=== PATIENT | male | born 1965 | race Two or more races ===

== ENCOUNTER 2018-03-20 11:56 | Inpatient (IN) | payer SELFPAY ==
[2018-03-20] MEDS ORDERED: Albuterol-Ipratrop 3 mg / 0.5 (3 ml) UD INH STA (13:21)
[2018-03-20 14:01] LABS: BASO % 1.1 % (0.0-2.0); EOS # 0.1 K/uL (0.0-0.7); EOS % 1.9 % (0.0-4.0); HEMOGLOBIN 10.2 g/dL (12.0-18.0); LYMPH # 0.6 K/uL (1.0-4.3); LYMPH % 21.1 % (20.0-40.0); MEAN CELL VOLUME 74.9 fL (80.0-94.0); MEAN CORPUSCULAR HEMOGLOBIN 24.9 pg (27.0-31.0); MEAN CORPUSCULAR HGB CONC 33.3 g/dL (33.0-37.0); MEAN PLATELET VOLUME 9.4 fL (7.2-11.7); MONO # 0.3 K/uL (0.0-0.8); MONO % 9.9 % (0.0-10.0); NEUT # 1.9 K/uL (1.8-7.0); RBC 4.11 Mil/uL (4.40-5.90); RED CELL DISTRIBUTION WIDTH 16.2 % (11.5-14.5); WHITE BLOOD COUNT 2.9 K/uL (4.8-10.8)
[2018-03-20] MEDS ORDERED: Albuterol-Ipratrop 3 mg / 0.5 (3 ml) UD ONE (14:18)
--- NOTE | 2018-03-20 14:20 | C.PDOC ---
History Of Present Illness 52 year old male, with PMHx of hepatitis, cirrhosis, presents to ED for evaluation of dry non-productive cough. Pt was seen on 03/05 and was found to have right middle lobe pneumonia. Pt was given Zithromax for 6 days. Notes fever has stopped, but dry cough persists. Also complains of snoring at night and symptoms of sleep apnea corroborated by @ bedside. No chest pain, shortness of breath, or other complaints. Time Seen by Provider: 03/20/18 13:09 Chief Complaint (Nursing): Cough, Cold, Congestion History Per: Patient History/Exam Limitations: no limitations Past Medical History Reviewed: Historical Data, Nursing Documentation, Vital Signs Vital Signs: Last Vital Signs Temp 98.8 F 03/20/18 12:16 Pulse 77 03/20/18 12:16 Resp 19 03/20/18 12:16 BP 188/78 H 03/20/18 12:16 Pulse Ox 96 03/20/18 12:16 - Medical History PMH: Gall Bladder Disease Denies: Chronic Kidney Disease Surgical History: Denies: Appendectomy, CABG, Carotid Endarterectomy, Cholecystectomy, Coronary Stent, Tonsillectomy Family History: States: Unknown Family Hx - Social History Hx Tobacco Use: No Hx Alcohol Use: No Hx Substance Use: No - Immunization History Hx Tetanus Toxoid Vaccination: No Hx Influenza Vaccination: No Hx Pneumococcal Vaccination: No Review Of Systems Except As Marked, All Systems Reviewed And Found Negative. Constitutional: Positive for: Other (symmetrical leg edema started about 2 yrs ago and persists daily. Not significantly improved in AM after sleeping.). Negative for: Fever, Chills Cardiovascular: Negative for: Chest Pain Respiratory: Positive for: Cough. Negative for: Shortness of Breath Gastrointestinal: Negative for: Nausea, Vomiting, Abdominal Pain Neurological: Negative for: Headache, Dizziness Physical Exam - Physical Exam Appears: Non-toxic, No Acute Distress, Other (morbidly obese) Skin: Normal Color, Warm, Dry Head: Atraumatic, Normacephalic Eye(s): bilateral: Normal Inspection Oral Mucosa: Moist Neck: Normal ROM, Supple Chest: Symmetrical Cardiovascular: Murmur (S3), JVD Respiratory: Normal Breath Sounds, No Rales, No Rhonchi, No Wheezing Gastrointestinal/Abdominal: Soft, No Tenderness, Distention, Other (globus abdomen) Back: No CVA Tenderness Extremity: Normal ROM, Pedal Edema (4/4 bilateral) Neurological/Psych: Oriented x3, Normal Speech ED Course And Treatment - Laboratory Results Result Diagrams: 03/21/18 07:20 03/21/18 02:38 Lab Interpretation: Abnormal (microcytic anemia, + d-dimer 620H, bnp/trop neg.) ECG: Interpreted By Me ECG Rhythm: Sinus Rhythm ECG Interpretation: Abnormal (LVH) Rate From EC O2 Sat by Pulse Oximetry: 96 Pulse Ox Interpretation: Normal - Radiology CXR: Interpreted by Me CXR Interpretation: Yes: Heart Size, Other (+CHF) Reevaluation Time: 15:58 Reassessment Condition: Improved - Physician Consult Information Outcome Of Conversation: 1630: d/w Dr. Spencer- Hospitalist covering self-pay pts, ok to tele adm Medical Decision Making Medical Decision Making: CHF: JVD, leg edema, RVH on CXR Cardiological or related to Hep C/Cirrhosis continue diuresis. COPD Lung dz/SOB continue LABA/long acting inhaled steroids as opt nebs as inpt D Dimer 620 H with suspected pulm HTN/R side failure prior allergic rxn to IV contrast so Dry Chest CT Lovenox 100 mg SQ given empirically consider VQ scan MANISH R heart faiure obese with clinical MANISH Sleep study for home BIPAP SARABJIT Cigarette Smoking Nicotine Patch started Continue quit smoking as opt. Hep C: large abd ? ascites consider inpt abd US increased risk of liver CA with hepatitis and cigarette smoking Microcytic Anemia, Hgb 10 Consider chronic GIB, iron def vs synthetic defect due to hepatitis Consider upper and lower endoscopies Consider Fe Supplements Costochondritis b/l parasternal chest wall discomfort related to dry non-prod cough x 1 month steroids for COPD will double cover Disposition Doctor Will See Patient In The: Hospital Counseled Patient/Family Regarding: Studies Performed, Diagnosis - Disposition Disposition: HOSPITALIZED Disposition Time: 16:36 Condition: GOOD - Clinical Impression Clinical Impression: CHF (congestive heart failure), COPD (chronic obstructive pulmonary disease) - Scribe Statement The provider has reviewed the documentation as recorded by the Scribe KP All medical record entries made by the Scribe were at my direction and personally dictated by me. I have reviewed the chart and agree that the record accurately reflects my personal performance of the history, physical exam, medical decision making, and the department course for this patient. I have also personally directed, reviewed, and agree with the discharge instructions and disposition.
[2018-03-20 14:26] LABS: INR 1.4; PROTHROMBIN TIME 14.8 SECONDS (9.7-12.2)
[2018-03-20 14:52] LABS: ALT/SGPT 71 U/L (21-72); AST/SGOT 68 U/L (17-59); BLOOD UREA NITROGEN 11 mg/dL (9-20); GFR NON-AFRICAN AMERICAN > 60
--- NOTE | 2018-03-20 15:25 | RAD ---
Date of service: 03/20/2018 PROCEDURE: CHEST RADIOGRAPH, 1 VIEW HISTORY: SOB COMPARISON: 03/05/2018 FINDINGS: LUNGS: No consolidation PLEURA: No pneumothorax or pleural fluid seen. CARDIOVASCULAR: Cardiomegaly and pulmonary venous congestion-the latter increased since prior exam. OSSEOUS STRUCTURES: No significant abnormalities. VISUALIZED UPPER ABDOMEN: Normal. OTHER FINDINGS: Round metallic device projects over low right paratracheal location not seen as such on prior study. This was shown to be a ring on patient's necklace and is not reproduced on the 2nd image IMPRESSION: Cardiomegaly-similar. Pulmonary venous congestion increased since prior exam. No gross consolidation seen.
[2018-03-20] MEDS ORDERED: Iodixanol 320 MG/ML 100 ML BOTTLE IV ONE (15:49)
[2018-03-20] MEDS ORDERED: Enoxaparin 40 mg Syringe SC STA (15:55)
[2018-03-20 16:07] LABS: URINE BACTERIA RARE (<OCC); URINE BILIRUBIN NEGATIVE (NEGATIVE); URINE BLOOD NEGATIVE (NEGATIVE); URINE CLARITY Clear (Clear); URINE COLOR Straw (YELLOW); URINE GLUCOSE (UA) NORMAL (Normal); URINE LEUKOCYTE ESTERASE NEG Leu/uL (Negative); URINE PROTEIN NEGATIVE (NEGATIVE); URINE UROBILINOGEN NORMAL mg/dL (0.2-1.0)
[2018-03-20] MEDS ORDERED: Enoxaparin 100 mg Syringe ONE (16:23)
--- NOTE | 2018-03-20 16:50 | CT ---
Date of service: 03/20/18 CT chest without IV contrast Indication: sob, R side failure, COPD, elev d-dimer Technique: Contiguous axial images were obtained through the chest without intravenous contrast enhancement. Sagittal and coronal reconstructions were generated and reviewed. This CT exam was performed using 1 or more of the following dose reduction techniques: Automated exposure control, adjustment of the MAA and/or kV according to patient size, and/or use of iterative reconstruction technique. Radiation dose (DLP): 843.27 MGy-cm. Comparison: Chest x-ray performed 03/20/18 Findings: Visualized portions of the inferior thyroid gland appear unremarkable. The mediastinal and hilar vascular structures appear within normal limits. The heart appears within normal limits of size. Coronary artery calcifications. Ascending aortic aneurysm measuring approximately 4.6 cm in AP dimension No focal consolidation. No pleural effusion. No pneumothorax. No suspicious pulmonary nodules measuring greater than 5 mm. Small hiatal hernia. Limited visualization of the noncontrast upper abdomen: Partially imaged splenomegaly. Severe enlargement of the portal vein and branches. Recannulized umbilical vein. Probable splenic varices. Sub cm mesenteric lymph nodes. Bilateral gynecomastia. Degenerative changes. Impression: Ascending aortic aneurysm measuring approximately 4.6 cm in AP dimension Limited visualization of the noncontrast upper abdomen: Partially imaged splenomegaly. Severe enlargement of the portal vein and branches. Recannulized umbilical vein. Probable splenic varices. Sub cm mesenteric lymph nodes. No focal consolidation. No pleural effusion. No pneumothorax.
[2018-03-20] MEDS: Albuterol-Ipratrop 3 mg / 0.5 (3 ml) UD INH SCH (18:47)
[2018-03-20] MEDS ORDERED: Azithromycin 500 MG in Sodium Chloride 0.9% 250 ML IVPB SCH (19:00)
[2018-03-20 19:37] VITALS: BMI 36.1
[2018-03-20 22:12] LABS: CK-MB 0.67 ng/mL (0.0-3.38)
--- NOTE | 2018-03-20 22:19 | CP.PCM.HP ---
<Kaitlin Villafuerte P - Last Filed: 03/21/18 06:19> History of Present Illness - History of Present Illness History of Present Illness: PGY-1 H&P note for hospitalist service. 52 year old M with PMHx of Hepatitis C (untreated), liver cirrhosis, splenomegaly and hypertension presents to ED for dry cough and shortness of breath on exertion that began approximately 3 weeks ago. Patient was seen at [facility] ED on 02/24, diagnosed with pneumonia, and discharged with 6 days of azithromycin. Patient states he took the full course of antibiotics, however cough never improved. Patient also complains of intermittent chest pain on the left side that at times radiates to L arm and is associated with L arm weakness. Associated symptoms include subjective fever, chills, diaphoresis, generalized weakness, headache, and nausea. PMHx: Hepatitis C (untreated), Liver cirrhosis, splenomegaly, hypertension PSHx: Denies Meds: None Allergies: IV contrast-shortness of breath Family Hx: father- [place] at 54 yo. Mother- [place] at 66 yo. Social: Smoker: 1ppd for 45 years; former IV drug use (heroine, cocaine)-quit 10 years ago. Denies alcohol use. Lives with () and kids. Works as a musician. Proxy: SonBarbara [phone] Code Status: full code PMD: none Present on Admission - Present on Admission Any Indicators Present on Admission: No Review of Systems - Constitutional Constitutional: Chills, Fever, Headache, Weakness - Cardiovascular Cardiovascular: Chest Pain, Diaphoresis, Dyspnea on Exertion, Edema, Lighthe adedness. absent: Palpitations - Respiratory Respiratory: Cough, Dyspnea on Exertion, Pain with Coughing. absent: Hemoptysis, Wheezing - Gastrointestinal Gastrointestinal: Abdominal Pain, Nausea. absent: Constipation, Diarrhea, Hematemesis, Melena, Vomiting - Genitourinary Genitourinary: absent: Difficulty Urinating, Hematuria, Urinary Frequency - Neurological Neurological: Headaches. absent: Syncope, Tingling Past Patient History - Past Medical History & Family History Past Medical History?: Yes - Past Social History Smoking Status: Heavy Smoker > 10 Cigarettes Daily - CARDIAC Hx Cardiac Disorders: No - PULMONARY Hx Respiratory Disorders: No - NEUROLOGICAL Hx Neurological Disorder: No - HEENT Hx HEENT Problems: No - RENAL Hx Chronic Kidney Disease: No - ENDOCRINE/METABOLIC Hx Endocrine Disorders: No - HEMATOLOGICAL/ONCOLOGICAL Hx Blood Disorders: Yes Hx Hepatitis C: Yes - INTEGUMENTARY Hx Dermatological Problems: No - MUSCULOSKELETAL/RHEUMATOLOGICAL Hx Musculoskeletal Disorders: No Hx Falls: No - GASTROINTESTINAL Hx Gastrointestinal Disorders: Yes Hx Gall Bladder Disease: Yes - GENITOURINARY/GYNECOLOGICAL Hx Genitourinary Disorders: No - PSYCHIATRIC Hx Psychophysiologic Disorder: No Hx Substance Use: No (in the past) - SURGICAL HISTORY Hx Surgeries: No Hx Appendectomy: No Hx Carotid Endarterectomy: No Hx Cholecystectomy: No Hx Coronary Artery Bypass Graft: No Hx Coronary Stent: No Hx Tonsillectomy: No - ANESTHESIA Hx Anesthesia: No Meds Allergies/Adverse Reactions: Allergies Allergy/AdvReac Type Severity Reaction Status Date / Time No Known Allergies Allergy Verified 03/20/18 12:20 Physical Exam - Constitutional Appears: No Acute Distress - Head Exam Head Exam: ATRAUMATIC, NORMOCEPHALIC - Eye Exam Eye Exam: EOMI, PERRL - ENT Exam ENT Exam: Mucous Membranes Moist - Respiratory Exam Respiratory Exam: Decreased Breath Sounds. absent: Rales, Rhonchi, Wheezes - Cardiovascular Exam Cardiovascular Exam: REGULAR RHYTHM, JVD, +S1, +S2, Systolic Murmur - GI/Abdominal Exam GI & Abdominal Exam: Distended, Normal Bowel Sounds, Soft. absent: Tenderness - Extremities Exam Extremities exam: Positive for: full ROM, normal capillary refill, pedal edema (non-pitting), pedal pulses present. Negative for: normal inspection (chronic venous stasis changes bilateral lower extremities) - Neurological Exam Neurological exam: Alert, CN II-XII Intact, Normal Gait, Oriented x3 - Skin Skin Exam: Diaphoretic, Intact, Normal Color, Warm Results - Vital Signs Recent Vital Signs: Last Vital Signs Temp 98.1 F 03/20/18 19:37 Pulse 84 03/20/18 19:37 Resp 16 03/20/18 19:37 BP 175/90 H 03/20/18 19:37 Pulse Ox 93 L 03/20/18 19:37 - Labs Result Diagrams: 03/20/18 13:57 03/21/18 02:38 Labs: Laboratory Results - last 24 hr 03/20/18 03/20/18 03/20/18 13:57 13:57 13:57 WBC 2.9 L RBC 4.11 L Hgb 10.2 L Hct 30.8 L MCV 74.9 L MCH 24.9 L MCHC 33.3 RDW 16.2 H Plt Count 50 L MPV 9.4 Neut % (Auto) 66.0 Lymph % (Auto) 21.1 [place] % (Auto) 9.9 Eos % (Auto) 1.9 Baso % (Auto) 1.1 Neut # (Auto) 1.9 Lymph # (Auto) 0.6 L [place] # (Auto) 0.3 Eos # (Auto) 0.1 Baso # (Auto) 0.0 PT 14.8 H INR 1.4 APTT 34 D-Dimer, Quantitative 620 H Sodium 140 Potassium 4.1 Chloride 106 Carbon Dioxide 25 Anion Gap 14 BUN 11 Creatinine 0.5 L Est GFR ( Amer) > 60 Est GFR (Non-Af Amer) > 60 Random Glucose 117 H Calcium 9.0 Total Bilirubin 0.7 AST 68 H D ALT 71 Alkaline Phosphatase 80 Total Creatine Kinase CK-MB (Mass) Troponin I < 0.0120 NT-Pro-B Natriuret Pep 32.0 Total Protein 8.1 Albumin 4.0 Globulin 4.1 H Albumin/Globulin Ratio 1.0 Urine Color Urine Clarity Urine pH Ur Specific [place] Urine Protein Urine Glucose (UA) Urine Ketones Urine Blood Urine Nitrate Urine Bilirubin Urine Urobilinogen Ur Leukocyte Esterase Urine WBC (Auto) Urine Bacteria 03/20/18 03/20/18 16:00 21:37 WBC RBC Hgb Hct MCV MCH MCHC RDW Plt Count MPV Neut % (Auto) Lymph % (Auto) [place] % (Auto) Eos % (Auto) Baso % (Auto) Neut # (Auto) Lymph # (Auto) [place] # (Auto) Eos # (Auto) Baso # (Auto) PT INR APTT D-Dimer, Quantitative Sodium Potassium Chloride Carbon Dioxide Anion Gap BUN Creatinine Est GFR ( Amer) Est GFR (Non-Af Amer) Random Glucose Calcium Total Bilirubin AST ALT Alkaline Phosphatase Total Creatine Kinase 106 CK-MB (Mass) 0.67 Troponin I < 0.0120 NT-Pro-B Natriuret Pep Total Protein Albumin Globulin Albumin/Globulin Ratio Urine Color Straw Urine Clarity Clear Urine pH 6.0 Ur Specific [place] 1.009 Urine Protein Negative Urine Glucose (UA) Normal Urine Ketones Negative Urine Blood Negative Urine Nitrate Negative Urine Bilirubin Negative Urine Urobilinogen Normal Ur Leukocyte Esterase Neg Urine WBC (Auto) < 1 Urine Bacteria Rare Assessment & Plan - Assessment and Plan (Free Text) Plan: 52 year old M with PMHx of Hepatitis C (untreated), liver cirrhosis, and hypertension admitted for cough, shortness of breath and chest pain. Chest pain rule out ACS -EKG: NSR @ 75bpm, LVH, no acute ST changes -CXR: Cardiomegaly-similar. Pulmonary venous congestion increased since prior exam. No gross consolidation seen. -Chest CT without contrast: Ascending aortic aneurysm measuring approximately 4.6 cm in AP dimension. Limited visualization of the noncontrast upper abdomen: Partially imaged splenomegaly. Severe enlargement of the portal vein and branches. Recannulized umbilical vein. Probable splenic varices. Sub cm mes enteric lymph nodes. No focal consolidation. No pleural effusion. No pneumothorax. -Troponin neg x2 -Echo ordered -Lipid panel -TSH, free T4 -Hgb A1c Dyspnea, rule out COPD vs PE vs CHF vs infectious etiology -CXR: Cardiomegaly-similar. Pulmonary venous congestion increased since prior exam. No gross consolidation seen. -Chest CT without contrast: Ascending aortic aneurysm measuring approximately 4.6 cm in AP dimension. Limited visualization of the noncontrast upper abdomen: Partially imaged splenomegaly. Severe enlargement of the portal vein and branches. Recannulized umbilical vein. Probable splenic varices. Sub cm mesenteric lymph nodes. No focal consolidation. No pleural effusion. No pneumothorax. -Patient received 100mg lovenox in ED -follow up V/Q scan -Duonebs Q4H -Solumedrol 40mg Q8H -Lasix 20 Q12H -Azithromycin 500mg IV daily -Ceftriaxone 1gm IV Q12H -Blood cx HTN -Norvasc 10mg PO daily -Hydralazine 25mg PO TID Prophylaxis -Pepcid 40mg daily -Lovenox 40mg daily -Nicotine patch -Heart healthy diet - Date & Time Date: 03/20/18 Time: 18:00 <Ray Whiting - Last Filed: 03/21/18 07:43> Results - Vital Signs Recent Vital Signs: Last Vital Signs Temp 98.2 F 03/21/18 00:00 Pulse 96 H 03/21/18 00:00 Resp 20 03/21/18 00:00 BP 166/73 H 03/21/18 00:00 Pulse Ox 95 10/05/18 00:00 - Labs Result Diagrams: 03/20/18 13:57 03/21/18 02:38 Labs: Laboratory Results - last 24 hr 03/20/18 03/20/18 03/20/18 13:57 13:57 13:57 WBC 2.9 L RBC 4.11 L Hgb 10.2 L Hct 30.8 L MCV 74.9 L MCH 24.9 L MCHC 33.3 RDW 16.2 H Plt Count 50 L MPV 9.4 Neut % (Auto) 66.0 Lymph % (Auto) 21.1 [place] % (Auto) 9.9 Eos % (Auto) 1.9 Baso % (Auto) 1.1 Neut # (Auto) 1.9 Lymph # (Auto) 0.6 L [place] # (Auto) 0.3 Eos # (Auto) 0.1 Baso # (Auto) 0.0 PT 14.8 H INR 1.4 APTT 34 D-Dimer, Quantitative 620 H Sodium 140 Potassium 4.1 Chloride 106 Carbon Dioxide 25 Anion Gap 14 BUN 11 Creatinine 0.5 L Est GFR ( Amer) > 60 Est GFR (Non-Af Amer) > 60 Random Glucose 117 H Calcium 9.0 Phosphorus Magnesium Total Bilirubin 0.7 AST 68 H D ALT 71 Alkaline Phosphatase 80 Total Creatine Kinase CK-MB (Mass) Troponin I < 0.0120 NT-Pro-B Natriuret Pep 32.0 Total Protein 8.1 Albumin 4.0 Globulin 4.1 H Albumin/Globulin Ratio 1.0 Triglycerides Cholesterol LDL Cholesterol Direct HDL Cholesterol TSH 3rd Generation Urine Color Urine Clarity Urine pH Ur Specific [place] Urine Protein Urine Glucose (UA) Urine Ketones Urine Blood Urine Nitrate Urine Bilirubin Urine Urobilinogen Ur Leukocyte Esterase Urine WBC (Auto) Urine Bacteria 03/20/18 03/20/18 03/21/18 16:00 21:37 02:38 WBC RBC Hgb Hct MCV MCH MCHC RDW Plt Count MPV Neut % (Auto) Lymph % (Auto) [place] % (Auto) Eos % (Auto) Baso % (Auto) Neut # (Auto) Lymph # (Auto) [place] # (Auto) Eos # (Auto) Baso # (Auto) PT INR APTT D-Dimer, Quantitative Sodium 139 Potassium 4.2 Chloride 103 Carbon Dioxide 25 Anion Gap 16 BUN 16 Creatinine 0.6 L Est GFR ( Amer) > 60 Est GFR (Non-Af Amer) > 60 Random Glucose 312 H Calcium 8.5 L Phosphorus 2.3 L Magnesium 1.7 Total Bilirubin 0.7 AST 55 ALT 56 Alkaline Phosphatase 77 Total Creatine Kinase 106 84 CK-MB (Mass) 0.67 0.55 Troponin I < 0.0120 0.0130 NT-Pro-B Natriuret Pep Total Protein 7.8 Albumin 3.8 Globulin 4.0 H Albumin/Globulin Ratio 0.9 L Triglycerides 150 H Cholesterol 111 LDL Cholesterol Direct 48 HDL Cholesterol 34 TSH 3rd Generation 0.38 L Urine Color Straw Urine Clarity Clear Urine pH 6.0 Ur Specific [place] 1.009 Urine Protein Negative Urine Glucose (UA) Normal Urine Ketones Negative Urine Blood Negative Urine Nitrate Negative Urine Bilirubin Negative Urine Urobilinogen Normal Ur Leukocyte Esterase Neg Urine WBC (Auto) < 1 Urine Bacteria Rare Attending/Attestation - Attestation I have personally seen and examined this patient.: Yes I have fully participated in the care of the patient.: Yes I have reviewed all pertinent clinical information: Yes Notes (Text): 03/21/18 07:43 Medical attending: Patient was seen and examined by me, I reviewed the above note by medical assistant dermatology and agree with the above note The patient says that he doesn't want to stay very long, I explained to him that we would not be offended if he left early however it was probably in his best interest to get all the tests that we were considering. His risk factors include a history of drug abuse he says he has used IV drugs in the past both heroine and cocaine. Chest x-ray shows cardiomegaly, he short of breath. He was recently coming into the hospital concerns for pneumonia. We have started the patient on IV antibiotics, blood cultures were taken. The ER was considering ordering a CTA to assess for PE, however they were not able to after the patient went to the CAT scan and said that he had some sort of allergy to IV contrast. We ordered a VQ study for the following day. He is ready received Lovenox 100 mg subcutaneous 1 He is still a smoker as well. I explained a lot of the risk that the patient has if he leaves early, the patient says that he understands but that he may still leave early tomorrow afternoon time. I explained to him what a AMA was, he said he understood Thank you very much, Ray Whiting
[2018-03-21] MEDS: Albuterol-Ipratrop 3 mg / 0.5 (3 ml) UD INH SCH ×3 (00:23→07:28)
[2018-03-21 00:40] VITALS: RESP 20; TEMP 98.2
[2018-03-21 03:14] LABS: LDL CHOLESTEROL 48 mg/dL (0-129)
[2018-03-21 03:15] LABS: CK-MB 0.55 ng/mL (0.0-3.38)
[2018-03-21 04:03] LABS: ALB/GLOB RATIO 0.9 (1.0-2.1); ALBUMIN 3.8 g/dL (3.5-5.0); ALT/SGPT 56 U/L (21-72); AST/SGOT 55 U/L (17-59); BLOOD UREA NITROGEN 16 mg/dL (9-20); CALCIUM 8.5 mg/dl (8.6-10.4); GFR NON-AFRICAN AMERICAN > 60; HDL CHOLESTEROL 34 mg/dL (30-70)
[2018-03-21 07:47] LABS: EOS % 0.1 % (0.0-4.0); HEMOGLOBIN 9.9 g/dL (12.0-18.0); MONO # 0.1 K/uL (0.0-0.8); NEUT # 1.9 K/uL (1.8-7.0); WHITE BLOOD COUNT 2.3 K/uL (4.8-10.8)
[2018-03-21 07:59] LABS: BASO % 0.6 % (0.0-2.0); LYMPH # 0.3 K/uL (1.0-4.3); LYMPH % 11.2 % (20.0-40.0); MEAN CELL VOLUME 74.9 fL (80.0-94.0); MEAN CORPUSCULAR HGB CONC 33.4 g/dL (33.0-37.0); MEAN PLATELET VOLUME 10.3 fL (7.2-11.7); MONO % 3.5 % (0.0-10.0); NEUT % 84.6 % (50.0-75.0); NRBC % 0.1 % (0.0-2.0); RBC 3.96 Mil/uL (4.40-5.90); RED CELL DISTRIBUTION WIDTH 16.3 % (11.5-14.5)
[2018-03-21 09:27] VITALS: PULSE 68
[2018-03-21 09:44] VITALS: BP 158/64
[2018-03-21] MEDS ORDERED: Enoxaparin 40 mg Syringe SC SCH (10:00)
--- NOTE | 2018-03-21 10:30 | NM ---
Date of service: 03/21/2018 COMPARISON: March 20, 2018 single-view chest. March 20, 2018 CT thorax TECHNIQUE: 7.9 mCi technetium 99-m Xe-133 Gas. 4.2 mCI technetium 99-m MAA administered intravenously. FINDINGS: VENTILATION COMPONENT: Normal. PERFUSION COMPONENT: Heterogeneous distribution of radionuclide. No geographic, segmental, lobar abnormalities apparent on the present examination. IMPRESSION: Low probability ventilation perfusion scan for pulmonary embolism.
--- NOTE | 2018-03-21 21:29 | CP.PCM.DIS ---
<Bryson Camilo - Last Filed: 03/21/18 21:21> Provider - Provider Date of Admission: 03/20/18 16:33 Attending physician: Srinivasa Spencer MD Primary care physician: None Time Spent in preparation of Discharge (in minutes): 45 Diagnosis - Discharge Diagnosis (1) Cirrhosis Status: Acute (2) Ascites Status: Acute (3) Pneumonia Status: Acute Hospital Course - Lab Results Lab Results: Most Recent Lab Values WBC 2.3 K/uL (4.8-10.8) L 03/21/18 07:20 RBC 3.96 Mil/uL (4.40-5.90) L 03/21/18 07:20 Hgb 9.9 g/dL (12.0-18.0) L 03/21/18 07:20 Hct 29.7 % (35.0-51.0) L 03/21/18 07:20 MCV 74.9 fL (80.0-94.0) L 03/21/18 07:20 MCH 25.0 pg (27.0-31.0) L 03/21/18 07:20 MCHC 33.4 g/dL (33.0-37.0) 03/21/18 07:20 RDW 16.3 % (11.5-14.5) H 03/21/18 07:20 Plt Count 57 K/uL (130-400) L 03/21/18 07:20 MPV 10.3 fL (7.2-11.7) 03/21/18 07:20 Neut % (Auto) 84.6 % (50.0-75.0) H 03/21/18 07:20 Lymph % (Auto) 11.2 % (20.0-40.0) L 03/21/18 07:20 [place] % (Auto) 3.5 % (0.0-10.0) 03/21/18 07:20 Eos % (Auto) 0.1 % (0.0-4.0) 03/21/18 07:20 Baso % (Auto) 0.6 % (0.0-2.0) 03/21/18 07:20 Neut # (Auto) 1.9 K/uL (1.8-7.0) 03/21/18 07:20 Lymph # (Auto) 0.3 K/uL (1.0-4.3) L 03/21/18 07:20 [place] # (Auto) 0.1 K/uL (0.0-0.8) 03/21/18 07:20 Eos # (Auto) 0.0 K/uL (0.0-0.7) 03/21/18 07:20 Baso # (Auto) 0.0 K/uL (0.0-0.2) 03/21/18 07:20 PT 14.8 SECONDS (9.7-12.2) H 03/20/18 13:57 INR 1.4 03/20/18 13:57 APTT 34 SECONDS (21-34) 03/20/18 13:57 D-Dimer, Quantitative 620 ng/mlDDU (0-243) H 03/20/18 13:57 Sodium 139 mmol/L (132-148) 03/21/18 02:38 Potassium 4.2 mmol/L (3.6-5.2) 03/21/18 02:38 Chloride 103 mmol/L (98-107) 03/21/18 02:38 Carbon Dioxide 25 mmol/L (22-30) 03/21/18 02:38 Anion Gap 16 (10-20) 03/21/18 02:38 BUN 16 mg/dL (9-20) 03/21/18 02:38 Creatinine 0.6 mg/dL (0.8-1.5) L 03/21/18 02:38 Est GFR ( Amer) > 60 03/21/18 02:38 Est GFR (Non-Af Amer) > 60 03/21/18 02:38 Random Glucose 312 mg/dL (75-110) H 03/21/18 02:38 Hemoglobin A1c 6.2 % (4.2-6.5) 03/21/18 07:20 Calcium 8.5 mg/dl (8.6-10.4) L 03/21/18 02:38 Phosphorus 2.3 mg/dL (2.5-4.5) L 03/21/18 02:38 Magnesium 1.7 mg/dL (1.6-2.3) 03/21/18 02:38 Total Bilirubin 0.7 mg/dL (0.2-1.3) 10/05/18 02:38 AST 55 U/L (17-59) 03/21/18 02:38 ALT 56 U/L (21-72) 03/21/18 02:38 Alkaline Phosphatase 77 U/L (38-126) 03/21/18 02:38 Total Creatine Kinase 84 U/L (55-170) 03/21/18 02:38 CK-MB (Mass) 0.55 ng/mL (0.0-3.38) 03/21/18 02:38 Troponin I 0.0130 ng/mL (0.00-0.120) 03/21/18 02:38 NT-Pro-B Natriuret Pep 32.0 pg/mL (0-900) 03/20/18 13:57 Total Protein 7.8 g/dL (6.3-8.3) 03/21/18 02:38 Albumin 3.8 g/dL (3.5-5.0) 03/21/18 02:38 Globulin 4.0 gm/dL (2.2-3.9) H 03/21/18 02:38 Albumin/Globulin Ratio 0.9 (1.0-2.1) L 03/21/18 02:38 Triglycerides 150 mg/dL (0-149) H 03/21/18 02:38 Cholesterol 111 mg/dL (0-199) 03/21/18 02:38 LDL Cholesterol Direct 48 mg/dL (0-129) 03/21/18 02:38 HDL Cholesterol 34 mg/dL (30-70) 03/21/18 02:38 Free T4 0.79 ng/dL (0.78-2.19) 03/21/18 07:20 TSH 3rd Generation 0.38 mIU/L (0.46-4.68) L 03/21/18 02:38 Urine Color Straw (YELLOW) 03/20/18 16:00 Urine Clarity Clear (Clear) 03/20/18 16:00 Urine pH 6.0 (5.0-8.0) 03/20/18 16:00 Ur Specific Ina 1.009 (1.003-1.030) 03/20/18 16:00 Urine Protein Negative mg/dL (NEGATIVE) 03/20/18 16:00 Urine Glucose (UA) Normal mg/dL (Normal) 03/20/18 16:00 Urine Ketones Negative mg/dL (NEGATIVE) 03/20/18 16:00 Urine Blood Negative (NEGATIVE) 03/20/18 16:00 Urine Nitrate Negative (NEGATIVE) 03/20/18 16:00 Urine Bilirubin Negative (NEGATIVE) 03/20/18 16:00 Urine Urobilinogen Normal mg/dL (0.2-1.0) 03/20/18 16:00 Ur Leukocyte Esterase Neg Michael/uL (Negative) 03/20/18 16:00 Urine WBC (Auto) < 1 /hpf (0-5) 03/20/18 16:00 Urine Bacteria Rare (<OCC) 03/20/18 16:00 - Hospital Course Hospital Course: Medicine Discharge Summary for Hospitalist Service 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 Patient was seen at [facility] ED on 02/24/18, diagnosed with pneumonia, and discharged with 6 days of azithromycin. Patient stated he took the full course of antibiotics, however cough never improved. Patient also complained of intermittent chest pain on the left side that at times radiates to L arm and is associated with L arm weakness. Associated symptoms included subjective fever, chills, diaphoresis, generalized weakness, headache, and nausea. Pt was admitted for treatment of Pneumonia, management of Hepatitis C, and liver cirrhosis/ascites. EKG: NSR @ 75bpm, LVH, no acute ST changes CXR: Cardiomegaly-similar. Pulmonary venous congestion increased since prior exam. No gross consolidation seen. Chest CT without contrast: Ascending aortic aneurysm measuring approximately 4.6 cm in AP dimension. Limited visualization of the noncontrast upper abdomen: Partially imaged splenomegaly. Severe enlargement of the portal vein and branches. Recannulized umbilical vein. Probable splenic varices. Sub cm mesen teric lymph nodes. No focal consolidation. No pleural effusion. No pneumothorax. Echo was ordered on admission. Troponins were negative. Pt received lovenox and V/Q scan was ordered to r/o PE vs. CHF vs. infectious etiology for shortness of breath. Pt was placed on duonebs, solumedrol, lasix, azithromycin, ceftriaxone. Blood cultures were drawn. Pt was medically managed for HTN on home medication doses. This am on 03/21/18, pt decided to leave against medical advice and refused further work-up. Risks and benefits of leaving against medical advice were conveyed to the patient, who was understanding of his decision. Instructed patient to f/u at [facility], since pt reported having no PMD prior to admission. Physical exam deferred due to pt leaving against medical advice this am. Plan discussed with Dr. Whiting, attending. Discharge Exam - Head Exam Head Exam: ATRAUMATIC, NORMOCEPHALIC Discharge Plan - Follow Up Plan Condition: GOOD Disposition: AGAINST MEDICAL ADVICE <Ray Whiting H - Last Filed: 03/22/18 12:12> Provider - Provider Date of Admission: 03/20/18 16:33 Attending physician: Srinivasa Spencer MD Hospital Course - Lab Results Lab Results: Micro Results 03/20/18 22:40 Blood-Venous Blood Culture - Preliminary NO GROWTH AFTER 24 HOURS 03/20/18 21:37 Blood-Venous Blood Culture - Preliminary NO GROWTH AFTER 24 HOURS Most Recent Lab Values WBC 2.3 K/uL (4.8-10.8) L 03/21/18 07:20 RBC 3.96 Mil/uL (4.40-5.90) L 03/21/18 07:20 Hgb 9.9 g/dL (12.0-18.0) L 03/21/18 07:20 Hct 29.7 % (35.0-51.0) L 03/21/18 07:20 MCV 74.9 fL (80.0-94.0) L 03/21/18 07:20 MCH 25.0 pg (27.0-31.0) L 03/21/18 07:20 MCHC 33.4 g/dL (33.0-37.0) 03/21/18 07:20 RDW 16.3 % (11.5-14.5) H 03/21/18 07:20 Plt Count 57 K/uL (130-400) L 03/21/18 07:20 MPV 10.3 fL (7.2-11.7) 03/21/18 07:20 Neut % (Auto) 84.6 % (50.0-75.0) H 03/21/18 07:20 Lymph % (Auto) 11.2 % (20.0-40.0) L 03/21/18 07:20 [place] % (Auto) 3.5 % (0.0-10.0) 03/21/18 07:20 Eos % (Auto) 0.1 % (0.0-4.0) 03/21/18 07:20 Baso % (Auto) 0.6 % (0.0-2.0) 03/21/18 07:20 Neut # (Auto) 1.9 K/uL (1.8-7.0) 03/21/18 07:20 Lymph # (Auto) 0.3 K/uL (1.0-4.3) L 03/21/18 07:20 [place] # (Auto) 0.1 K/uL (0.0-0.8) 03/21/18 07:20 Eos # (Auto) 0.0 K/uL (0.0-0.7) 03/21/18 07:20 Baso # (Auto) 0.0 K/uL (0.0-0.2) 03/21/18 07:20 PT 14.8 SECONDS (9.7-12.2) H 03/20/18 13:57 INR 1.4 03/20/18 13:57 APTT 34 SECONDS (21-34) 03/20/18 13:57 D-Dimer, Quantitative 620 ng/mlDDU (0-243) H 03/20/18 13:57 Sodium 139 mmol/L (132-148) 03/21/18 02:38 Potassium 4.2 mmol/L (3.6-5.2) 03/21/18 02:38 Chloride 103 mmol/L (98-107) 03/21/18 02:38 Carbon Dioxide 25 mmol/L (22-30) 03/21/18 02:38 Anion Gap 16 (10-20) 03/21/18 02:38 BUN 16 mg/dL (9-20) 03/21/18 02:38 Creatinine 0.6 mg/dL (0.8-1.5) L 03/21/18 02:38 Est GFR ( Amer) > 60 03/21/18 02:38 Est GFR (Non-Af Amer) > 60 03/21/18 02:38 Random Glucose 312 mg/dL (75-110) H 03/21/18 02:38 Hemoglobin A1c 6.2 % (4.2-6.5) 03/21/18 07:20 Calcium 8.5 mg/dl (8.6-10.4) L 03/21/18 02:38 Phosphorus 2.3 mg/dL (2.5-4.5) L 03/21/18 02:38 Magnesium 1.7 mg/dL (1.6-2.3) 03/21/18 02:38 Total Bilirubin 0.7 mg/dL (0.2-1.3) 03/21/18 02:38 AST 55 U/L (17-59) 03/21/18 02:38 ALT 56 U/L (21-72) 03/21/18 02:38 Alkaline Phosphatase 77 U/L (38-126) 03/21/18 02:38 Total Creatine Kinase 84 U/L (55-170) 03/21/18 02:38 CK-MB (Mass) 0.55 ng/mL (0.0-3.38) 03/21/18 02:38 Troponin I 0.0130 ng/mL (0.00-0.120) 03/21/18 02:38 NT-Pro-B Natriuret Pep 32.0 pg/mL (0-900) 03/20/18 13:57 Total Protein 7.8 g/dL (6.3-8.3) 03/21/18 02:38 Albumin 3.8 g/dL (3.5-5.0) 03/21/18 02:38 Globulin 4.0 gm/dL (2.2-3.9) H 03/21/18 02:38 Albumin/Globulin Ratio 0.9 (1.0-2.1) L 03/21/18 02:38 Triglycerides 150 mg/dL (0-149) H 03/21/18 02:38 Cholesterol 111 mg/dL (0-199) 03/21/18 02:38 LDL Cholesterol Direct 48 mg/dL (0-129) 03/21/18 02:38 HDL Cholesterol 34 mg/dL (30-70) 03/21/18 02:38 Free T4 0.79 ng/dL (0.78-2.19) 03/21/18 07:20 TSH 3rd Generation 0.38 mIU/L (0.46-4.68) L 03/21/18 02:38 Urine Color Straw (YELLOW) 03/20/18 16:00 Urine Clarity Clear (Clear) 03/20/18 16:00 Urine pH 6.0 (5.0-8.0) 03/20/18 16:00 Ur Specific Ina 1.009 (1.003-1.030) 03/20/18 16:00 Urine Protein Negative mg/dL (NEGATIVE) 03/20/18 16:00 Urine Glucose (UA) Normal mg/dL (Normal) 03/20/18 16:00 Urine Ketones Negative mg/dL (NEGATIVE) 03/20/18 16:00 Urine Blood Negative (NEGATIVE) 03/20/18 16:00 Urine Nitrate Negative (NEGATIVE) 03/20/18 16:00 Urine Bilirubin Negative (NEGATIVE) 03/20/18 16:00 Urine Urobilinogen Normal mg/dL (0.2-1.0) 03/20/18 16:00 Ur Leukocyte Esterase Neg Michael/uL (Negative) 03/20/18 16:00 Urine WBC (Auto) < 1 /hpf (0-5) 03/20/18 16:00 Urine Bacteria Rare (<OCC) 03/20/18 16:00 Attending/Attestation - Attestation I have personally seen and examined this patient.: Yes I have fully participated in the care of the patient.: Yes I have reviewed all pertinent clinical information, including history, physical exam and plan: Yes Notes (Text): 03/22/18 12:11 Medical attending: Patient left AMA before I could see the patient in the morning. The patient was not in acute distress but ideally should have stayed. He did tell me when I met him in the ER previous night he would leave AMA most doron Whiting
[2018-03-21 23:12] VITALS: O2SAT 96
--- NOTE | 2018-03-24 11:15 | CARD ---
APPROVED REPORT Date of service: 03/20/2018 EKG Measurement Heart [id number] <Conclusion> Normal sinus rhythm Voltage criteria for left ventricular hypertrophy Nonspecific ST abnormality Abnormal ECG
== END 2018-03-21 10:00 | disposition left against medical advice (07) | DRG 194 ==
LOC: C.ER 11:56 → C.9E 16:33 → C.5S 18:47
PROVIDERS: ADMIT Internal Medicine; ATTEND Internal Medicine
DX: J18.9 Pneumonia, unspecified organism (principal); J44.0 Chronic obstructive pulmonary disease with (acute) lower respiratory infection; B19.20 Unspecified viral hepatitis C without hepatic coma; D50.9 Iron deficiency anemia, unspecified; E66.9 Obesity, unspecified; F17.210 Nicotine dependence, cigarettes, uncomplicated; G47.33 Obstructive sleep apnea (adult) (pediatric); I11.0 Hypertensive heart disease with heart failure; I50.9 Heart failure, unspecified; K74.60 Unspecified cirrhosis of liver

== ENCOUNTER 2018-08-27 09:11 | Emergency (ER) | payer OTHER ==
[2018-08-27 09:11] VITALS: BMI 36.1
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
[2018-08-27 11:05] LABS: BASO % 0.5 % (0.0-2.0); EOS # 0.1 K/uL (0.0-0.7); EOS % 2.5 % (0.0-4.0); HEMOGLOBIN 10.2 g/dL (12.0-18.0); LYMPH # 0.4 K/uL (1.0-4.3); LYMPH % 18.7 % (20.0-40.0); MEAN CELL VOLUME 75.3 fL (80.0-94.0); MEAN CORPUSCULAR HGB CONC 31.9 g/dL (33.0-37.0); MEAN PLATELET VOLUME 11.7 fL (7.2-11.7); MONO # 0.2 K/uL (0.0-0.8); MONO % 10.2 % (0.0-10.0); NEUT # 1.6 K/uL (1.8-7.0); NEUT % 68.1 % (50.0-75.0); NRBC % 0.1 % (0.0-2.0); RBC 4.24 Mil/uL (4.40-5.90); WHITE BLOOD COUNT 2.4 K/uL (4.8-10.8)
[2018-08-27 11:16] LABS: INR 1.4; PROTHROMBIN TIME 15.7 SECONDS (9.7-12.2)
[2018-08-27 11:25] LABS: ALB/GLOB RATIO 1.1 (1.0-2.1); ALBUMIN 3.8 g/dL (3.5-5.0); ALT/SGPT 29 U/L (21-72); AST/SGOT 52 U/L (17-59); BLOOD UREA NITROGEN 17 mg/dL (9-20); CALCIUM 8.9 mg/dl (8.6-10.4); GFR NON-AFRICAN AMERICAN > 60; LIPASE 57 U/L (23-300)
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
[2018-08-27 11:53] VITALS: RESP 16
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
[2018-08-27 11:57] VITALS: PULSE 73
[2018-08-27 12:03] VITALS: O2SAT 95
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
[2018-08-27 13:28] VITALS: BP 147/69; TEMP 98
== END 2018-08-27 13:55 | disposition home or self-care (01) ==
LOC: C.ER 09:11
DX: S93.401A Sprain of unspecified ligament of right ankle, initial encounter (principal); V43.62XA Car passenger injured in collision with other type car in traffic accident, initial encounter; Y92.410 Unspecified street and highway as the place of occurrence of the external cause; I11.0 Hypertensive heart disease with heart failure; I50.9 Heart failure, unspecified; Z87.891 Personal history of nicotine dependence
CPT/HCPCS: 71046; 73562; 73610; 74176; 80053; 83690; 85025; 85610; 85730; 86850; 86900; 96374; 97116; 97161; 99285; G8978; G8979; G8980; J3010